=== PATIENT | female | born 1955 | race Caucasian/White ===

== ENCOUNTER 2017-03-16 20:33 | Observation (INO) | payer BC ==
[~2017-03-16] VITALS: Ht 162.6 cm; Wt 68.4 kg
[2017-03-16] MEDS ORDERED: SODIUM CHLORIDE 0.9% 1000ML 1,000 ML IV STA (21:39)
[2017-03-16] MEDS ORDERED: PRLSR20 PO (22:09)
[2017-03-16] MEDS ORDERED: MOME6000 (22:09)
[2017-03-16] MEDS ORDERED: [UNRECOGNIZED DRUG - CODE] PO (22:09)
[2017-03-16] MEDS ORDERED: CLR10 PO (22:09)
[2017-03-16 22:10] LABS: PROTHROMBIN TIME (PATIENT) 10.7 SECONDS (9.0-12.0)
[2017-03-16 22:16] LABS: MANUAL MICROSCOPIC REQUIRED? NO; REVIEW REQ? NO; URINE APPEARANCE CLEAR (CLEAR); URINE BILIRUBIN NEG (NEG); URINE COLOR YELLOW; URINE NITRITE NEG (NEG); URINE SPECIFIC GRAVITY 1.014 (1.000-1.030); UROBILINOGEN NEG (NEG)
[2017-03-16 22:17] LABS: ALT/SGPT 32 U/L (12-78); BLOOD UREA NITROGEN 11 mg/dl (7-18); BUN/CREATININE RATIO 15.4 (10-20); CALCIUM 9.3 mg/dl (8.5-10.1); CARBON DIOXIDE 27 mmol/L (21-32); CHLORIDE 105 mmol/L (98-107); GLUCOSE 125 mg/dl (70-99); MAGNESIUM 2.4 mg/dl (1.8-2.4); POTASSIUM 3.6 mmol/L (3.5-5.1); SODIUM 140 mmol/L (136-145)
[2017-03-16 22:20] LABS: BASO % 0.4 %; BASO ABS # 0.03 K/uL (0-0.2); COMPLETE YES; HEMATOCRIT 41.8 % (37-47); IG% 0.1 %; LYMPH % 25.7 %; LYMPH ABS # 1.85 K/uL (1.2-3.4); MEAN CELL VOLUME 86.4 fL (80-100); MEAN CORPUSCULAR HEMOGLOBIN 29.1 pg (25-34); MEAN CORPUSCULAR HGB CONC 33.7 g/dl (32-36); MEAN PLATELET VOLUME 10.7 fL (7.4-10.4); MONO % 9.7 %; NEUT % 63.1 %; PLATELET COUNT 300 K/uL (130-400); RED BLOOD COUNT 4.84 M/uL (4.2-5.4)
[2017-03-16 22:26] LABS: ALKALINE PHOSPHATASE 55 U/L (45-117); AST/SGOT 22 U/L (15-37); CKMB/CK RATIO 1.4 (0-3.0)
[2017-03-16] MEDS ORDERED: DIAZEPAM INJ 5 MG/ML 2 ML CARP IV STA (22:28)
[2017-03-16] MEDS ORDERED: ONDANSETRON 8 MG/54 ML D5W IV STA (22:28)
[2017-03-16] MEDS ORDERED: SODIUM CHLORIDE 0.9% 500ML 500 ML IV STA (22:28)
[2017-03-17] VITALS (7 sets, daily range): BP systolic 121–147; BP diastolic 69–78; PULSE 48–73; TEMP 36.4–36.8; O2SAT 94–97; Ht 162.6 cm; Wt 68.4 kg
[2017-03-17] MEDS ORDERED: DIAZEPAM INJ 5 MG/ML 2 ML CARP IV STA (01:08)
[2017-03-17] MEDS ORDERED: PHARMACIST DISCHARGE MED REC CONSULT PRN (02:30)
[2017-03-17] MEDS ORDERED: MECLIZINE HCL 12.5 MG TAB PO PRN (02:30)
[2017-03-17] MEDS ORDERED: CLOPIDOGREL BISULFATE 75 MG TAB PO STA (02:45)
[2017-03-17] MEDS ORDERED: IV FLUIDS COMPLETED PRN (03:00)
--- NOTE | 2017-03-17 03:24 | History and Physical ---
History & Physical Date & Time of Service: Mar 17, 2017 at 02:57 Chief Complaint: Dizziness,Blurred Vision,Shakiness,Chills Primary Care Physician: No Doctor, Assigned History of Present Illness Source: patient 61 y/o F Hx sinusitis, GERD, diet-controlled DM. She is visiting from [place]. The pt stated that she was having blurred vision earlier in the day. She did not describe double vision but stated that her vision was just worse than normal and did not entirely correct with her glasses. She then developed acute dizziness and nausea in addition to a few minutes of slurred speech. She presented to the ER where she was administered Valium and sent for an MRI. The Valium served to improve her symptoms. There was no evidence of a CVA on MRI. She denies CP, SOB or fevers. Her blood pressure was elevated at the time of admission without documented history of HTN. This too improved with administration of Valium. Past Medical/Surgical History Medical Problems: (1) Arthritis Status: Chronic (2) Asthma Status: Chronic (3) Bronchitis Status: Resolved (4) Diabetes Status: Chronic (5) Heart palpitations Status: Resolved (6) History of IBS Status: Chronic (7) Hypertension Status: Chronic (8) Schatzki's ring Status: Resolved Surgical Problems: (1) H/O arthroscopic knee surgery Status: Resolved (2) Previous section Status: Resolved Family History Cancer Diabetes mellitus Gallbladder disease Hypertension Kidney disease Kidney stones Phlebitis Father - pancreatic CA Mother - complications of ESRD/dialysis Social History Rare drink - former smoker Smoking Status: Former Smoker Allergies Coded Allergies: Aspirin (Unverified Allergy, Unknown, ANAPHYLAXIS, 03/16/17) Latex (Unverified Allergy, Unknown, HIVES, 03/16/17) Home Medications Scheduled Glutathione (Glutathione), 5 TABS PO WK Loratadine (Claritin), 10 MG PO DAILY Mometasone Furoate (Nasal) (Mometasone Furoate), 1 SPRAY NA DAILY Omeprazole (Prilosec), 20 MG PO DAILY Review of Systems Constitutional: No fever, No chills, No sweats Eyes: + worsening of vision ENT: No hearing loss, No unusual epistaxis, No nasal symptoms Respiratory: No cough, No sputum, No wheezing Cardiovascular: No chest pain, No orthopnea, No PND Abdomen: + nausea, No pain, No vomiting Musculoskeletal: No joint pain Genitourinary - Female: No dysuria Neurologic: + vertigo, + problem reported (Blurred vision , slurred speech), No memory loss Psychiatric: No depression symptoms Endocrine: No fatigue Hematologic / Lymphatic: No abnormal bleeding/bruising Integumentary: No rash Allergic / Immunologic: + environmental allergies Physical Exam Vital Signs Date Time Temp Pulse Resp B/P (MAP) Pulse Ox O2 Delivery O2 Flow Rate FiO2 03/17/17 01:20 67 18 136/71 94 Room Air 03/16/17 23:23 73 18 127/56 95 Room Air 03/16/17 21:46 Room Air 03/16/17 21:06 63 177/81 72 182/78 60 162/92 03/16/17 20:41 36.8 68 19 184/78 97 Room Air General Appearance: WD/WN, no apparent distress Head: normocephalic Eyes: normal inspection ENT: normal ENT inspection, pharynx normal Neck: supple, no JVD Respiratory/Chest: chest non-tender, lungs clear, normal breath sounds Cardiovascular: regular rate, rhythm, no edema, no gallop, no JVD, no murmur, normal peripheral pulses Abdomen/GI: normal bowel sounds, non tender, soft Back: normal inspection, no CVA tenderness, no muscle spasm, normal range of motion Extremities/Musculoskelatal: normal inspection, no calf tenderness, normal capillary refill, no pedal edema, normal range of motion 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, no motor/sensory deficits, alert, normal mood/affect, normal reflexes, oriented x 3 Skin: normal color, warm/dry, no rash Diagnostics Laboratory Results Results Past 24 Hours Test 03/16/17 21:00 03/16/17 21:20 Range/Units Urine Color YELLOW Urine Appearance CLEAR CLEAR Urine pH 5.0 4.5-7.5 Urine Specific [place] 1.014 1.000-1.030 Urine Protein NEG NEG Urine Glucose (UA) NEG NEG Urine Ketones NEG NEG Urine Occult Blood NEG NEG Urine Nitrite NEG NEG Urine Bilirubin NEG NEG Urine Urobilinogen NEG NEG Urine Leukocyte Esterase NEG NEG White Blood Count 7.20 4.8-10.8 K/uL Red Blood Count 4.84 4.2-5.4 M/uL Hemoglobin 14.1 12.0-16.0 g/dL Hematocrit 41.8 37-47 % Mean Corpuscular Volume 86.4 80-100 fL Mean Corpuscular Hemoglobin 29.1 25-34 pg Mean Corpuscular Hemoglobin Concent 33.7 32-36 g/dl Platelet Count 300 130-400 K/uL Mean Platelet Volume 10.7 7.4-10.4 fL Neutrophils (%) (Auto) 63.1 % Lymphocytes (%) (Auto) 25.7 % Monocytes (%) (Auto) 9.7 % Eosinophils (%) (Auto) 1.0 % Basophils (%) (Auto) 0.4 % Neutrophils # (Auto) 4.54 1.4-6.5 K/uL Lymphocytes # (Auto) 1.85 1.2-3.4 K/uL Monocytes # (Auto) 0.70 0.11-0.59 K/uL Eosinophils # (Auto) 0.07 0-0.5 K/uL Basophils # (Auto) 0.03 0-0.2 K/uL RDW Standard Deviation 44.6 36.4-46.3 fL RDW Coefficient of Variation 14.1 11.5-14.5 % Immature Granulocyte % (Auto) 0.1 % Immature Granulocyte # (Auto) 0.01 0.00-0.02 K/uL Prothrombin Time 10.7 9.0-12.0 SECONDS Prothromb Time International Ratio 1.0 0.9-1.1 Activated Partial Thromboplast Time 25.2 21.0-31.0 SECONDS Partial Thromboplastin Ratio 1.0 Sodium Level 140 136-145 mmol/L Potassium Level 3.6 3.5-5.1 mmol/L Chloride Level 105 98-107 mmol/L Carbon Dioxide Level 27 21-32 mmol/L Anion Gap 8.0 3-11 mmol/L Blood Urea Nitrogen 11 7-18 mg/dl Creatinine 0.70 0.60-1.20 mg/dl Est Creatinine Clear Calc Drug Dose 80.1 ml/min Estimated GFR () 107.6 Estimated GFR (Non- 92.9 BUN/Creatinine Ratio 15.4 10-20 Random Glucose 125 70-99 mg/dl Calcium Level 9.3 8.5-10.1 mg/dl Magnesium Level 2.4 1.8-2.4 mg/dl Total Bilirubin 0.2 0.2-1 mg/dl Direct Bilirubin < 0.1 0-0.2 mg/dl Aspartate Amino Transf (AST/SGOT) 22 15-37 U/L Alanine Aminotransferase (ALT/SGPT) 32 12-78 U/L Alkaline Phosphatase 55 45-117 U/L Total Creatine Kinase 147 26-192 U/L Creatine Kinase MB 2.0 0.5-3.6 ng/ml Creatine Kinase MB Ratio 1.4 0-3.0 Troponin I < 0.015 0-0.045 ng/ml Total Protein 7.3 6.4-8.2 gm/dl Albumin 4.0 3.4-5.0 gm/dl Lipase 227 73-393 U/L Thyroid Stimulating Hormone (TSH) 1.430 0.300-4.500 uIu/ml Microbiology Results 03/16/17 Urine Culture, Received Pending Diagnostic Radiology MRI brain: microvascular disease, chronic sinusitis EKG NSR Normal EKG Impression Assessment and Plan 61 y/o F Hx sinusitis, GERD, diet-controlled DM. She is visiting from [place]. The pt stated that she was having blurred vision earlier in the day. She did not describe double vision but stated that her vision was just worse than normal and did not entirely correct with her glasses. She then developed acute dizziness and nausea in addition to a few minutes of slurred speech. She presented to the ER where she was administered Valium and sent for an MRI. The Valium served to improve her symptoms. There was no evidence of a CVA on MRI. She denies CP, SOB or fevers. Her blood pressure was elevated at the time of admission without documented history of HTN. This too improved with administration of Valium. 1) Blurred vision, dizziness, slurred speech - concerning for TIA with post circulation symptoms. Initial MRI is neg. - we will obtain an MRA head/neck and carotid doppler. She is admitted with a CVA protocol to telemetry. Her symptoms have largely resolved at the time of admission. She is allergic to ASA. We have provided Plavix and a Statin. 2) Elevated BP - may have been related to stress - would not treat regardless under the circumstances. Trend on telemetry to determine if this is a chronic issue. 3) Diet-controlled DM - Glu 125 on admission - will check A1C 4) GERD - cont PPi Full code - Heparin prophylaxis Total time for this admit including review of labs, meds, EKG - discussion with ot and ER attending - 35 min Level of Care Telemetry Resuscitation Status FULL RESUSCITATION VTE Prophylaxis VTE Risk Assessment Done? Y/N: Yes Risk Level: Low Given or contraindicated: Unfractionated heparin SQ
--- NOTE | 2017-03-17 03:41 | EMERGENCY ROOM VISIT NOTE ---
History Report prepared by Terri: Myra Hoff Under the Supervision of: Dr. Torsten Eubanks M.D. First contact with patient: 21:39 Chief Complaint: DIZZY Stated Complaint: DIZZINESS,BLURRED VISION,SHAKINESS,CHILLS History of Present Illness The patient is a 61 year old female who presents to the Emergency Room with complaints of persistent dizziness that began yesterday afternoon. She currently rates her discomfort as a 1/10 in severity. The patient describes her dizziness as feeling off balance, noting that turning her head left and right worsen her symptoms. She states that she has been dizzy in the past, but nothing this severe. The patient additionally associates a headache and blurred vision. She states that within the last thirty minutes she has become nauseous. The patient states that she has been experiencing chills and shakiness. The patient notes that she does have some issues with motion sickness. The patient's family states that the patient had some difficulty breathing recently while they were in [place] [facility]. The patient reports a history of diet controlled diabetes, IBS, and anxiety. The patient denies any history of brain imaging. The patient's family states that the patient's speech was slurred prior to arrival, but notes that has resolved. Pt denies LOC , fevers, diaphoresis, neck pain, chest pain, vomiting, abdominal pain, back pain, melena, hematochezia, urinary symptoms, numbness, weakness, lymphadenopathy, rash, or other complaints. Source of History: patient, family Onset: yesterday afternoon Position: other (global) Symptom Intensity: 1/10 Quality: other (dizziness) Timing: other (persistent) Modifying Factors (Worsening): other (turning head left to right) Associated Symptoms: + chills, + headache, + nausea Note: Associated Symptoms: slurred speech today, shakiness, blurred vision Review of Systems See HPI for pertinent positives and negatives. A total of ten systems were reviewed and were otherwise negative. Past Medical & Surgical Medical Problems: (1) Arthritis (2) Asthma (3) Bronchitis (4) Diabetes (5) Heart palpitations (6) History of IBS (7) Hypertension (8) Schatzki's ring (9) Vertigo Surgical Problems: (1) H/O arthroscopic knee surgery (2) Previous section Family History Cancer Diabetes mellitus Gallbladder disease Hypertension Kidney disease Kidney stones Phlebitis Social History Smoking Status: Former Smoker Smokeless Tobacco Use: No Alcohol Use: occasionally Marital Status: Housing Status: lives alone Occupation Status: unemployed Current/Historical Medications Scheduled Glutathione (Glutathione), 5 TABS PO WK Loratadine (Claritin), 10 MG PO DAILY Mometasone Furoate (Nasal) (Mometasone Furoate), 1 SPRAY NA DAILY Omeprazole (Prilosec), 20 MG PO DAILY Allergies Coded Allergies: Aspirin (Unverified Allergy, Unknown, ANAPHYLAXIS, 03/16/17) Latex (Unverified Allergy, Unknown, HIVES, 03/16/17) Physical Exam Vital Signs Date Time Temp Pulse Resp B/P (MAP) Pulse Ox O2 Delivery O2 Flow Rate FiO2 03/17/17 01:20 67 18 136/71 94 Room Air 03/16/17 23:23 73 18 127/56 95 Room Air 03/16/17 23:02 75 03/16/17 21:46 Room Air 03/16/17 21:06 63 177/81 72 182/78 60 162/92 03/16/17 20:41 36.8 68 19 184/78 97 Room Air Physical Exam GENERAL: Awake, alert, well appearing, no distress HENT: Normocephalic, atraumatic. TM's normal. Oropharynx unremarkable. EYES: PERRL. EOMI. Normal conjunctiva. Sclera non-icteric. NECK: Supple. No nuchal rigidity. FROM. No JVD or bruit. RESPIRATORY: CTA CARDIAC: RRR. No murmur. ABDOMEN: Soft, non distended. No tenderness to palpation. No rebound or guarding. No masses. RECTAL: Deferred. MUSCULOSKELETAL: Unremarkable. No edema. No discoloration. Gross motor strength symmetric. NEURO: Cranial nerves 2-12 grossly intact. Normal sensorium. No sensory or motor deficits noted. Speech normal. No pronator drift. Negative HINTS exam, no nystagmus SKIN: No rash or jaundice noted. LYMPH: No adenopathy. Medical Decision & Procedures ER Provider Diagnostic Interpretation: Radiology results as stated below per my review and radiologist interpretation: MRI HEAD: No acute infarct. Scattered T2/FLAIR white matter hyperintensities, nonspecific but most commonly related to chronic small vessel ischemic changes. No evidence of mass or edema. No hydrocephalus. Partial empty sella. Filling of right frontal sinus with heterogeneous signal, likely representing mucous, 9 mm T1 hyperintense and T2 hypointense structure at the right frontal sinus recess, likely a protein rich mucocele. Correlate clinically for sinusitis. Radiologist: Santiago Ulrich MD Study ready at 0117 and initial results transmitted at 0139 Laboratory Results 03/16/17 21:20 Red Blood Count 4.84, Mean Corpuscular Volume 86.4, Mean Corpuscular Hemoglobin 29.1, Mean Corpuscular Hemoglobin Concent 33.7, Mean Platelet Volume 10.7, Neutrophils (%) (Auto) 63.1, Lymphocytes (%) (Auto) 25.7, Monocytes (%) (Auto) 9.7, Eosinophils (%) (Auto) 1.0, Basophils (%) (Auto) 0.4, Neutrophils # (Auto) 4.54, Lymphocytes # (Auto) 1.85, Monocytes # (Auto) 0.70, Eosinophils # (Auto) 0.07, Basophils # (Auto) 0.03 03/16/17 21:20 Test 03/16/17 21:00 03/16/17 21:20 Urine Color YELLOW Urine Appearance CLEAR (CLEAR) Urine pH 5.0 (4.5-7.5) Urine Specific [place] 1.014 (1.000-1.030) Urine Protein NEG (NEG) Urine Glucose (UA) NEG (NEG) Urine Ketones NEG (NEG) Urine Occult Blood NEG (NEG) Urine Nitrite NEG (NEG) Urine Bilirubin NEG (NEG) Urine Urobilinogen NEG (NEG) Urine Leukocyte Esterase NEG (NEG) White Blood Count 7.20 K/uL (4.8-10.8) Red Blood Count 4.84 M/uL (4.2-5.4) Hemoglobin 14.1 g/dL (12.0-16.0) Hematocrit 41.8 % (37-47) Mean Corpuscular Volume 86.4 fL (80-100) Mean Corpuscular Hemoglobin 29.1 pg (25-34) Mean Corpuscular Hemoglobin Concent 33.7 g/dl (32-36) Platelet Count 300 K/uL (130-400) Mean Platelet Volume 10.7 fL (7.4-10.4) Neutrophils (%) (Auto) 63.1 % Lymphocytes (%) (Auto) 25.7 % Monocytes (%) (Auto) 9.7 % Eosinophils (%) (Auto) 1.0 % Basophils (%) (Auto) 0.4 % Neutrophils # (Auto) 4.54 K/uL (1.4-6.5) Lymphocytes # (Auto) 1.85 K/uL (1.2-3.4) Monocytes # (Auto) 0.70 K/uL (0.11-0.59) Eosinophils # (Auto) 0.07 K/uL (0-0.5) Basophils # (Auto) 0.03 K/uL (0-0.2) RDW Standard Deviation 44.6 fL (36.4-46.3) RDW Coefficient of Variation 14.1 % (11.5-14.5) Immature Granulocyte % (Auto) 0.1 % Immature Granulocyte # (Auto) 0.01 K/uL (0.00-0.02) Prothrombin Time 10.7 SECONDS (9.0-12.0) Prothromb Time International Ratio 1.0 (0.9-1.1) Activated Partial Thromboplast Time 25.2 SECONDS (21.0-31.0) Partial Thromboplastin Ratio 1.0 Anion Gap 8.0 mmol/L (3-11) Est Creatinine Clear Calc Drug Dose 80.1 ml/min Estimated GFR () 107.6 Estimated GFR (Non- 92.9 BUN/Creatinine Ratio 15.4 (10-20) Calcium Level 9.3 mg/dl (8.5-10.1) Magnesium Level 2.4 mg/dl (1.8-2.4) Total Bilirubin 0.2 mg/dl (0.2-1) Direct Bilirubin < 0.1 mg/dl (0-0.2) Aspartate Amino Transf (AST/SGOT) 22 U/L (15-37) Alanine Aminotransferase (ALT/SGPT) 32 U/L (12-78) Alkaline Phosphatase 55 U/L (45-117) Total Creatine Kinase 147 U/L (26-192) Creatine Kinase MB 2.0 ng/ml (0.5-3.6) Creatine Kinase MB Ratio 1.4 (0-3.0) Troponin I < 0.015 ng/ml (0-0.045) Total Protein 7.3 gm/dl (6.4-8.2) Albumin 4.0 gm/dl (3.4-5.0) Lipase 227 U/L (73-393) Thyroid Stimulating Hormone (TSH) 1.430 uIu/ml (0.300-4.500) Laboratory results reviewed by me Medications Administered Medications (Trade) Dose Ordered Sig/Debby Route Start Time Stop Time Status Last Admin Dose Admin Sodium Chloride 1,000 ml @ 125 mls/hr Q8H STAT IV 03/16/17 21:39 03/17/17 02:44 DC 03/16/17 22:01 125 MLS/HR Diazepam (Valium Inj) 2.5 mg NOW STAT IV 03/16/17 22:28 03/16/17 22:29 DC 03/16/17 23:18 2.5 MG Ondansetron HCl (Zofran 8mg Iv) 8 mg NOW STAT IV 03/16/17 22:28 03/16/17 22:29 DC 03/16/17 23:18 8 MG Sodium Chloride 500 ml @ 999 mls/hr Q31M STAT IV 03/16/17 22:28 03/16/17 22:58 DC 03/16/17 23:18 999 MLS/HR Diazepam (Valium Inj) 2.5 mg NOW STAT IV 03/17/17 01:08 03/17/17 01:09 DC 03/17/17 00:32 2.5 MG Clopidogrel Bisulfate (plAVix TAB) 75 mg NOW STAT PO 03/17/17 02:45 03/17/17 02:46 DC 03/17/17 02:59 75 MG ECG Indication: other (dizziness) Rate (beats per minute): 55 Rhythm: sinus bradycardia Findings: no acute ischemic change, no ectopy ED Course 9: Ordered Sodium Chloride 1000 ml @ 125 mls/hr IV. 2225: The patient was evaluated in room B6. A complete history and physical exam was performed. 2228: Ordered Sodium Chloride 500 ml @ 999 mls/hr IV, Zofran 8 mg IV, Valium Inj 2.5 mg IV. 0108: Ordered Valium Inj 2.5 mg IV. 0121: I reevaluated the patient and she is feeling better, but notes that upon sitting up she is somewhat dizzy. 0144: I reevaluated the patient and she is doing well. I discussed the issues with the visual changes and slurred speech. I offered evaluation for further treatment. She verbalized complete understanding and agreement. She will be evaluated for further treatment. 0158: I discussed the patients case with MANOLO Leyva. He is going to evaluate the patient for further treatment. Medical Decision Blood pressure screening: Patient was found to have an elevated blood pressure and was referred to their primary doctor for recheck and further treatment. Medication Reconciliation: I attest that I have personally reviewed the patient' s current medication list Prior records/ancillary studies reviewed. Triage Nursing notes reviewed and agree them. The patient's history was concerning for dizziness. Differential diagnosis: Etiologies such as benign positional vertigo, CVA, TIA, tumor, infection, hypoglycemia, electrolyte abnormalities, cardiac sources, intracerebral event, toxicologic, neurologic, as well as others were entertained. Physical examination: As above. No clear pathologic nystagmus. ER treatment provided: IV hydration over one hour IV Zofran IV Valium On reassessment the patient felt somewhat better but was still dizzy with being upright. Diagnostics interpretation by me: ECG: Sinus rhythm without ischemic change or evidence of dysrhythmia. The labs revealed a normal CBC and chemistry panel. MRI did not reveal any acute findings. The patient had this intermittent dizziness. She then noted visual disturbance and some slurred speech. This is somewhat concerning for possible posterior circulation ischemic event. The patient is allergic to aspirin. She has no focal deficits at this time. Further evaluation and management will be necessary. I discussed this with the patient and she was in agreement. Consultation: A consultation was placed with the hospitalist. The case was discussed and diagnostics were reviewed. The patient was evaluated in the ER for further treatment. Consults Time Called: 0155 Consulting Physician: MANOLO Leyva Returned Call: [phone] I discussed the patients case with MANOLO Leyva. He is going to evaluate the patient for further treatment. Impression Primary Impression: Dizziness Scribe Attestation The scribe's documentation has been prepared under my direction and personally reviewed by me in its entirety. I confirm that the note above accurately reflects all work, treatment, procedures, and medical decision making performed by me. Departure Information Dispostion Being Evaluated By Hospitalist Referrals No Doctor, Assigned (PCP)
[2017-03-17] MEDS ORDERED: ACETAMINOPHEN 500 MG TAB PO PRN (04:00)
[2017-03-17] MEDS ORDERED: ACETAMINOPHEN 500 MG TAB PO ONE (04:23)
[2017-03-17] MEDS ORDERED: NSS + 20MEQ KCL 1000ML 1,000 ML IV SCH (05:00)
[2017-03-17] MEDS: ONDANSETRON INJ 2 MG/ML 2 ML VIAL IV. SCH ×4 (05:48→23:20)
[2017-03-17] MEDS: HEPARIN SOD 5000 UNIT/0.5 ML CARP SQ SCH ×3 (05:51→21:35)
[2017-03-17 06:57] LABS: ESTIMATED AVERAGE GLUCOSE 126 mg/dl; HA1C FLAG Normal (Normal)
--- NOTE | 2017-03-17 07:02 | DIAGNOSTIC IMAGING REPORT ---
MRI OF THE BRAIN WITHOUT CONTRAST CLINICAL HISTORY: Dizziness, hypertension. COMPARISON STUDY: None. FINDINGS: Sagittal T1, axial diffusion, proton density and T2 weighted axial, coronal FLAIR, and axial T1-weighted images were acquired. No intra or extra-axial mass lesions are visualized Axial diffusion-weighted images reveal no evidence of acute or subacute infarction. There is no evidence of ventricular dilatation. Proton density T2-weighted and FLAIR images reveal scattered foci of increased T2 signal within the white matter, likely on a small vessel basis. There are no abnormal flow voids. There is a focus of increased T1 and T2 signal within the right frontal sinus, likely inflammatory. There is a partially empty sella. IMPRESSION: 1. No acute intracranial findings 2. No evidence of acute or subacute infarction 3. No evidence of intracranial mass in this noncontrast study 4. Scattered foci of increased T2 signal within the white matter, likely on a small vessel basis Electronically signed by: Yuri Albarran M.D. 03/17/2017 7:00 AM Dictated Date/Time: 03/17/2017 6:58 AM
--- NOTE | 2017-03-17 07:10 | DIAGNOSTIC IMAGING REPORT ---
ULTRASOUND OF THE CAROTID ARTERIES CLINICAL HISTORY: Stroke COMPARISON STUDY: None. TECHNIQUE: Real-time, grayscale, and color Doppler sonography of the carotid arteries was performed. Imaging reviewed in the transverse and longitudinal planes. NASCET criteria was utilized for stenosis calcification. FINDINGS: There is mild atherosclerotic plaque present . The peak systolic velocity within the right internal carotid artery is 97 cm/sec. The systolic velocity ratio of right internal to common carotid artery is 1.2. The peak systolic velocity within the left internal carotid artery is 81 cm/sec. The systolic velocity ratio left internal to common carotid artery is 0.9. Antegrade flow is seen in the vertebral arteries. The external carotid arteries are patent. Blood pressure in the right arm measured 149 mm/Hg. Blood pressure in the left arm measured 133 mm/Hg. IMPRESSION: No evidence of hemodynamically significant carotid stenosis. Electronically signed by: Yuri Albarran M.D. 03/17/2017 7:09 AM Dictated Date/Time: 03/17/2017 7:08 AM
[2017-03-17] MEDS ORDERED: LORAZEPAM IV SCH (08:00)
[2017-03-17] MEDS: PANTOprazole SOD 40 MG TAB PO SCH (08:06)
[2017-03-17] MEDS: CLOPIDOGREL BISULFATE 75 MG TAB PO SCH (08:06)
[2017-03-17] MEDS ORDERED: ATORVASTATIN 20 MG TAB PO SCH (09:00)
[2017-03-17] MEDS ORDERED: NURSING VERBAL MED ORDER ONE (11:30)
[2017-03-17] MEDS ORDERED: DIAZEPAM INJ 5 MG/ML 2 ML CARP IV PRN (12:00)
--- NOTE | 2017-03-17 12:03 | Progress Note ---
Subjective Date of Service: Mar 17, 2017. Subjective Pt evaluation today including: conversation w/ patient, conversation w/ family , physical exam, chart review, lab review, review of studies, conversation w/ corporate consultant, review of inpatient medication list No more blurry vision, feel some dizziness, denied weakness, no more slurry speech, Problem List Medical Problems: (1) Dizziness Status: Acute Review of Systems Constitutional: No fever, No chills, No sweats, No weight loss, No weakness, No fatigue, No problem reported Eyes: No worsening of vision, No eye pain, No redness, No discharge, No diplopia ENT: No hearing loss, No unusual epistaxis, No nasal symptoms, No sore throat, No tinnitus, No dental problems, No trouble swallowing Respiratory: No cough, No sputum, No wheezing, No shortness of breath, No dyspnea on exertion, No dyspnea at rest, No hemoptysis Cardiac: No chest pain, No orthopnea, No PND, No edema, No claudication, No palpitations Abdomen: No pain, No nausea, No vomiting, No diarrhea, No constipation Musculoskeletal: No joint pain, No muscle pain, No swelling, No calf pain Female : No dysuria, No urinary frequency, No hematuria, No incontinence, No abnormal vaginal bleeding, No vaginal discharge Neurologic: No memory loss, No paralysis, No weakness, No numbness/tingling, No vertigo, No balance problems Psychiatric: No depression symptoms, No anhedonism, No anxiety, No insomnia, No substance abuse Heme: No abnormal bleeding/bruising, No clotting problems, No swollen lymph nodes, No night sweats Endo: No fatigue, No excessive thirst, No excessive urination Skin: No rash, No itch, No new/changing skin lesions, No color change, No bleeding Objective Vital Signs Date Time Temp Pulse Resp B/P (MAP) Pulse Ox O2 Delivery O2 Flow Rate FiO2 03/17/17 10:18 60 96 03/17/17 08:00 Room Air 03/17/17 07:13 36.7 66 18 137/69 (91) 96 Room Air 03/17/17 04:35 36.6 66 18 143/73 94 Room Air 03/17/17 03:54 72 18 129/69 95 03/17/17 01:20 67 18 136/71 94 Room Air 03/16/17 23:23 73 18 127/56 95 Room Air 03/16/17 23:02 75 03/16/17 21:46 Room Air 03/16/17 21:06 63 177/81 72 182/78 60 162/92 03/16/17 20:41 36.8 68 19 184/78 97 Room Air Physical Exam General Appearance: WD/WN, no apparent distress Eyes: normal inspection, PERRL, EOMI, sclerae normal ENT: normal ENT inspection, hearing grossly normal, pharynx normal Neck: supple, no adenopathy, thyroid normal, no JVD, no carotid bruits, trachea midline Respiratory/Chest: chest non-tender, lungs clear, normal breath sounds, no respiratory distress, no accessory muscle use Cardiovascular: regular rate, rhythm, no edema, no gallop, no JVD, no murmur Abdomen: normal bowel sounds, non tender, soft, no organomegaly, no pulsatile mass Extremities: normal range of motion, non-tender, normal inspection, no pedal edema, no calf tenderness, normal capillary refill, pelvis stable 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, no motor/sensory deficits, alert, normal mood/affect, oriented x 3 Skin: normal color, warm/dry, no rash Lymphatic: no adenopathy Laboratory Results Last 24 Hours Test 03/16/17 21:00 03/16/17 21:20 03/17/17 07:48 Urine Color YELLOW Urine Appearance CLEAR Urine pH 5.0 Urine Specific [place] 1.014 Urine Protein NEG Urine Glucose (UA) NEG Urine Ketones NEG Urine Occult Blood NEG Urine Nitrite NEG Urine Bilirubin NEG Urine Urobilinogen NEG Urine Leukocyte Esterase NEG White Blood Count 7.20 K/uL Red Blood Count 4.84 M/uL Hemoglobin 14.1 g/dL Hematocrit 41.8 % Mean Corpuscular Volume 86.4 fL Mean Corpuscular Hemoglobin 29.1 pg Mean Corpuscular Hemoglobin Concent 33.7 g/dl Platelet Count 300 K/uL Mean Platelet Volume 10.7 fL Neutrophils (%) (Auto) 63.1 % Lymphocytes (%) (Auto) 25.7 % Monocytes (%) (Auto) 9.7 % Eosinophils (%) (Auto) 1.0 % Basophils (%) (Auto) 0.4 % Neutrophils # (Auto) 4.54 K/uL Lymphocytes # (Auto) 1.85 K/uL Monocytes # (Auto) 0.70 K/uL Eosinophils # (Auto) 0.07 K/uL Basophils # (Auto) 0.03 K/uL RDW Standard Deviation 44.6 fL RDW Coefficient of Variation 14.1 % Immature Granulocyte % (Auto) 0.1 % Immature Granulocyte # (Auto) 0.01 K/uL Prothrombin Time 10.7 SECONDS Prothromb Time International Ratio 1.0 Activated Partial Thromboplast Time 25.2 SECONDS Partial Thromboplastin Ratio 1.0 Sodium Level 140 mmol/L Potassium Level 3.6 mmol/L Chloride Level 105 mmol/L Carbon Dioxide Level 27 mmol/L Anion Gap 8.0 mmol/L Blood Urea Nitrogen 11 mg/dl Creatinine 0.70 mg/dl Est Creatinine Clear Calc Drug Dose 80.1 ml/min Estimated GFR () 107.6 Estimated GFR (Non- 92.9 BUN/Creatinine Ratio 15.4 Random Glucose 125 mg/dl Estimated Average Glucose 126 mg/dl Hemoglobin A1c 6.0 % Calcium Level 9.3 mg/dl Magnesium Level 2.4 mg/dl Total Bilirubin 0.2 mg/dl Direct Bilirubin < 0.1 mg/dl Aspartate Amino Transf (AST/SGOT) 22 U/L Alanine Aminotransferase (ALT/SGPT) 32 U/L Alkaline Phosphatase 55 U/L Total Creatine Kinase 147 U/L Creatine Kinase MB 2.0 ng/ml Creatine Kinase MB Ratio 1.4 Troponin I < 0.015 ng/ml Total Protein 7.3 gm/dl Albumin 4.0 gm/dl Lipase 227 U/L Thyroid Stimulating Hormone (TSH) 1.430 uIu/ml Bedside Glucose 103 mg/dl Assessment and Plan 61 y/o F admitted possible because of TIA on 03/17/2017 per report: she is visiting from [place], was having blurred vision earlier in the day, denied double vision but stated that her vision was just worse than normal and did not entirely correct with her glasses, associated with acute dizziness and nausea in addition to a few minutes of slurred speech. She presented to the ER where she was administered Valium and sent for an MRI. The Valium served to improve her symptoms. There was no evidence of a CVA on MRI. Hx sinusitis, GERD, diet-controlled DM Possible TIA with Blurred vision, dizziness, slurred speech upon admission: Stable and improving Initial MRI is neg Carotid Doppler was unremarkable Pending MRA head/neck Continue CVA protocol to telemetry Was started Lipitor upon admission, however patient want to take this medication after the testing results of lipid panel, therefore Lipitor is on hold She is allergic to ASA, Plavix has been started Start Antivert for dizziness Elevated BP upon admission - may have been related to stress, continue watch Diet-controlled DM - Glu 125 on admission A1c 6.0 GERD - cont PPi Full code - Heparin prophylaxis Discussed with patient in detail about care plan, Patient was concerned about risk of IV contrast when doing MRA, she does not have history of allergy reactions, I discussed about the pros and cons, she is in average risk of reactions to IV contrast for MRi, she is willing to take in the risks Follow-up PT OT evaluation, possible discharge home tomorrow Continued [facility] stay due to: multiple IV medications needed Discharge planning: home
[2017-03-17] MEDS ORDERED: MECLIZINE HCL 25 MG TAB PO PRN (12:15)
--- NOTE | 2017-03-17 15:56 | DIAGNOSTIC IMAGING REPORT ---
MR ANGIOGRAM OF THE NECK COMBO CLINICAL HISTORY: Dizziness. Hypertension. COMPARISON STUDY: Ultrasound the carotid arteries dated 03/17/2017. TECHNIQUE: Axial 2-D [id number] MR angiography of the neck is performed. Subsequently, following the IV administration of 6.5 cc of Gadavist. Coronal MR angiogram of the neck was performed to corroborate the findings. 3-D reformats are created and assessed. Subtraction imaging was utilized. All measurements were calculated based on NASCET criteria. FINDINGS: Visualized portions of the thoracic aorta are normal in caliber. The aortic arch demonstrates standard 3-vessel anatomy. The subclavian arteries are widely patent bilaterally. The right common carotid artery is widely patent, as are the right internal and external carotid arteries. The left common carotid artery is widely patent, as are the left internal and external carotid arteries. The vertebral arteries are widely patent patent and codominant. The visualized intracranial vessels at the skull base appear patent. The internal jugular veins are clear. IMPRESSION: Unremarkable MR angiogram of the neck. Electronically signed by: Danny Mir M.D. 03/17/2017 3:54 PM Dictated Date/Time: 03/17/2017 3:52 PM
--- NOTE | 2017-03-17 15:56 | DIAGNOSTIC IMAGING REPORT ---
Brain MRA HISTORY: Mental status change Stroke - Attention to [place] TECHNIQUE: 3-D [id number] MRA of the brain was performed without contrast. COMPARISON STUDY: None. FINDINGS: Visualized intracranial internal carotid arteries, distal vertebral arteries, and basilar artery are widely patent. There is no significant stenosis, occlusion, or aneurysm seen within the bilateral ACAs, MCAs, or commercial carpet installer. IMPRESSION: No significant stenosis, occlusion, or aneurysm within the [place]. Electronically signed by: Moo Cheung M.D. 03/17/2017 3:55 PM Dictated Date/Time: 03/17/2017 3:51 PM
[2017-03-17] MEDS ORDERED: GADAVIST IV PRN (16:00)
[2017-03-18 03:45] VITALS: BP 137/83; PULSE 46; TEMP 36.6; O2SAT 97
[2017-03-18] MEDS: ONDANSETRON INJ 2 MG/ML 2 ML VIAL IV. SCH ×2 (06:32→12:02)
[2017-03-18] MEDS: HEPARIN SOD 5000 UNIT/0.5 ML CARP SQ SCH (06:33)
[2017-03-18 06:40] LABS: BUN/CREATININE RATIO 14.3 (10-20); CALCIUM 9.1 mg/dl (8.5-10.1); CREATININE 0.66 mg/dl (0.60-1.20); POTASSIUM 3.8 mmol/L (3.5-5.1)
[2017-03-18 06:43] LABS: CHOLESTEROL/HDL RATIO 2.6
[2017-03-18 06:55] LABS: BASO % 0.6 %; BASO ABS # 0.03 K/uL (0-0.2); COMPLETE YES; EOS % 3.1 %; HEMATOCRIT 42.1 % (37-47); LYMPH % 47.3 %; LYMPH ABS # 2.41 K/uL (1.2-3.4); MEAN CORPUSCULAR HEMOGLOBIN 28.9 pg (25-34); MEAN CORPUSCULAR HGB CONC 33.3 g/dl (32-36); MEAN PLATELET VOLUME 10.3 fL (7.4-10.4); PLATELET COUNT 259 K/uL (130-400); RED BLOOD COUNT 4.84 M/uL (4.2-5.4)
[2017-03-18 08:06] VITALS: BP 114/68; PULSE 48; TEMP 36.4; O2SAT 97
[2017-03-18] MEDS: CLOPIDOGREL BISULFATE 75 MG TAB PO SCH (08:34)
[2017-03-18] MEDS: PANTOprazole SOD 40 MG TAB PO SCH (08:35)
[2017-03-18 11:25] VITALS: BP 121/77; PULSE 55; TEMP 36.5; O2SAT 97
[2017-03-18] MEDS ORDERED: ANT25 PO (12:49)
[2017-03-18] MEDS ORDERED: DIAZ2TAB PO (12:49)
--- NOTE | 2017-03-18 12:52 | Discharge Instructions ---
Discharge Instructions Date of Service Mar 18, 2017. Admission Reason for Admission: Vertigo Discharge Discharge Diagnosis / Problem: Vertigo (BPPV) Discharge Goals Goal(s): Decrease discomfort, Improve function, Increase independence Activity Recommendations Activity Limitations: resume your previous activity (You should not drive until you are certain your symptoms of lightheadedness/dizziness and vision changes are completely resolved) . Instructions / Follow-Up Instructions / Follow-Up You should start taking a probiotic, Yamil EPS 5million is a good, general probiotic and is available at [employer] You can take 1 meclizine if your symptoms start to return. If no improvement after 20-30 minutes, you can take a second dose. If still no improvement, you can try taking a valium. If symptoms persist, you should be seen by PCP or in the ED. Risk Factors for Stroke: You can reduce your chances of stroke by working with your medical provider to adopt a healthy lifestyle. Some specific ways to lower your chance of stroke are: * If you are a smoker, now is the time to stop smoking cigarettes * If you are diabetic, improve the control of your blood sugars * Avoid excessive amounts of alcohol * Control high blood pressure * Lose weight if you are overweight * Be sure to lead an active lifestyle * Eat a healthy diet low in salt, cholesterol and fat You should know about other risk factors for stroke that you are unable to control. These include: * Age 55 years or older * Male gender * Certain racial groups: , or / * Family History of Stroke, Mini stroke or Heart Attack * Sickle Cell Disease Follow Up: It is important for you to keep your follow up appointments with your medical provider. Current Hospital Diet Patient's current hospital diet: Diabetes Type 2 Diet, AHA Diet (Heart Healthy) Discharge Diet Recommended Diet: Diabetes Type 2 Diet Pending Studies Studies pending at discharge: no Laboratory Results Hemoglobin A1c Test 03/16/17 21:20 Range/Units Estimated Average Glucose 126 mg/dl Hemoglobin A1c 6.0 H 4.5-5.6 % Lipid Panel Test 03/18/17 05:29 Range/Units Triglycerides Level 109 0-150 mg/dl Cholesterol Level 163 0-200 mg/dl HDL Cholesterol 63 mg/dl Cholesterol/HDL Ratio 2.6 LDL Cholesterol, Calculated 78 mg/dl Medical Emergencies . Who to Call and When: Medical Emergencies: Call 911 immediately if you experience any of the following warning signs and symptoms of Stroke: * Sudden numbness or weakness of the face, arm or leg, especially on one side of the body * Sudden confusion, trouble speaking or understanding * Sudden trouble seeing in one or both eyes * Sudden trouble walking, dizziness, loss of balance or coordination * Sudden severe headache with no cause Do not delay calling 911 if you experience any warning signs or symptoms of a stroke. Delay in seeking medical attention may affect what treatments can be given to you. . Non-Emergent Contact Non-Emergency issues call your: Primary Care Provider . . "Provider Documentation" section prepared by Tere Holliday. . Stroke Core Measures Reason no t-PA for Stroke: Treatment not indicated Reason no antithrom by day 2: Treatment provided - N/A Reason no antithrom at D/C: Treatment not indicated Reason no statin at D/C: Treatment not indicated Reason no anticoag w/a fib: Treatment not indicated VTE Core Measure Inpt VTE Proph given/why not?: Unfractionated heparin SQ
--- NOTE | 2017-03-18 13:13 | Discharge Summary ---
Discharge Summary Date of Service Mar 18, 2017. Discharge Summary Admission Date: Mar 17, 2017 at 02:40 Discharge Date: Mar 18, 2017 Principal Diagnosis: Vertigo, BPPV Problems/Secondary Diagnoses: Diet controlled DM GERD IBS Schatzki's ring Medication Reconciliation New Medications: Diazepam (Valium) 2 Mg Tab 1 TAB PO Q6H for dizziness/lightheadedness for 30 Days, #120 TAB Meclizine HCl (Meclizine HCl) 25 Mg Tab 12.5 MG PO Q6H PRN for dizziness, #30 TAB 1 Refill Can start with 1 tablet, if no improvement within 20-30 minutes, can take a second tablet Continued Medications: Glutathione (Glutathione) 50 Mg Tab 5 TABS PO WK Loratadine (Claritin) 10 Mg Tab 10 MG PO DAILY, TAB Mometasone Furoate (Nasal) (Mometasone Furoate) 50 Mcg/Act Spr 1 SPRAY NA DAILY Omeprazole (Prilosec) 20 Mg Capcr 20 MG PO DAILY, CAP Discharge Exam Pt is doing well. Still with occasional lightheadedness with ambulation, but much improved and none at rest. No further vision changes. No headache. Tolerating PO without issue. Pt denies fever, SOB, chest pain, abd pain, n/v/c/d , LE pain or swelling. ROS reviewed and otherwise neg Pt states that she has had similar sx in the past with prolonged driving. She has basic lightheadedness with video games. Pt states she is constipated at baseline and this is worse when she travels. Physical Exam: General Appearance: WD/WN, no apparent distress Respiratory/Chest: normal breath sounds, no respiratory distress Cardiovascular: regular rate, rhythm, no edema Abdomen / GI: non tender, soft Extremities: no calf tenderness, no pedal edema Neurologic/Psychiatric: alert, normal mood/affect Skin: normal color, warm/dry Hospital Course Per Admission H&P: 61 y/o F Hx sinusitis, GERD, diet-controlled DM. She is visiting from [place]. The pt stated that she was having blurred vision earlier in the day. She did not describe double vision but stated that her vision was just worse than normal and did not entirely correct with her glasses. She then developed acute dizziness and nausea in addition to a few minutes of slurred speech. She presented to the ER where she was administered Valium and sent for an MRI. The Valium served to improve her symptoms. There was no evidence of a CVA on MRI. She denies CP, SOB or fevers. Her blood pressure was elevated at the time of admission without documented history of HTN. This too improved with administration of Valium. Lightheadedness with blurry vision and slurred speech: Sx had been ongoing for roughly 1.5 days and improved in the ED s/p meclizine and valium These interventions are unlikely to resolve sx if they were related to TIA/ CVA and pt with hx of similar sx related to travel. Sx started s/p car, train, and air travel with minimal sleep. MRI, MRA head/neck, carotid US are all WNL UA neg CBC, PRP WNL Trop and EKG WNL TSH 1.4 Discussed statin and antiplatelet use with pt, she would like to avoid use at this time Lipid panel is WNL with LDL 78 and HDL 63 Pt with aspirin allergy and therefore plavix would be next choice if there is future concern for TIA Pt with further travel, given rx for meclizine and valium PRN Elevated BP upon admission - may have been related to stress and sx and has improved with sx improvement Diet-controlled DM - Glu 125 on admission A1c 6.0 Pt to continue her dietary modifications GERD - cont PPI Add probiotic Seen by PT/OT and fine for d/c Total Time Spent: Greater than 30 minutes This includes examination of the patient, discharge planning, medication reconciliation, and communication with other providers. Discharge Instructions Please refer to the electronic Patient Visit Report (Discharge Instructions) for additional information. Follow-Up PCP upon return to [place]
[2017-03-18 13:33] VITALS: BP 121/77; PULSE 55; TEMP 36.5; O2SAT 97
== END 2017-03-18 14:40 | disposition home or self-care (01) ==
LOC: C.EDB 20:34 → C.MED 03-17 02:40 → ENRESERV 03-17 02:57
PROVIDERS: ADMIT Internal Medicine; ATTEND Family Medicine
DX: H81.10 Benign paroxysmal vertigo, unspecified ear (principal); I10 Essential (primary) hypertension; E11.9 Type 2 diabetes mellitus without complications; K21.9 Gastro-esophageal reflux disease without esophagitis; K22.2 Esophageal obstruction; J45.909 Unspecified asthma, uncomplicated; Z87.891 Personal history of nicotine dependence; Z79.899 Other long term (current) drug therapy; K58.9 Irritable bowel syndrome, unspecified